=== PATIENT | female | born 1980 | race Caucasian/White ===

== ENCOUNTER 2017-12-18 08:13 | Outpatient (CLI) | payer OTHER ==
--- NOTE | 2017-12-18 12:19 | MMO ---
BILATERAL SCREENING MAMMOGRAM: Date: 12/18/17 HISTORY: Screening. COMPARISON: None. TECHNIQUE: Bilateral screening CC and MLO mammograms. This patient's mammogram was interpreted with the assistance of computer-aided detection. FINDINGS: There are benign calcifications in right and left breast. No suspicious mass, microcalcifications, or architectural distortion. IMPRESSION: BIRADS 2: Benign Finding(s) Continued annual mammographic screening is recommended. POS: ROBYN
== END 2017-12-18 08:14 | disposition home or self-care (01) ==
LOC: SCSMAMMO 08:13
PROVIDERS: ATTEND Family Medicine
DX: Z12.31 Encounter for screening mammogram for malignant neoplasm of breast (principal)
CPT/HCPCS: 77067